=== PATIENT | female | born 1975 | race Caucasian/White ===

== ENCOUNTER 2017-11-26 15:31 | Emergency (ER) | payer OTHER ==
[2017-11-26] MEDS: diphenhydrAMINE 50 MG/ML SDV IM ONE (15:50)
[2017-11-26] MEDS: methylPREDNISolone Sodium Succinate 125 MG/2 ML SDV IM ONE (17:21)
--- NOTE | 2017-11-26 17:26 | EDM.PDOC ---
Scribed by Roseline Wakefield 11/26/17 7520 for Michael Thorpe PA ED HPI GENERAL MEDICAL PROBLEM - General Chief Complaint: Allergic Reaction Stated Complaint: [id number] ALLERGIC REACTION TONGUE SWELLING Time Seen by Provider: 11/26/17 16:05 Source of Information: Reports: Patient, RN, RN Notes Reviewed History Limitations: Reports: No Limitations - History of Present Illness INITIAL COMMENTS - FREE TEXT/NARRATIVE: Patient presents with swelling to the left side of her tongue. She has had this 3 previous times. They have stopped the Lisinopril one week ago. Her tongue now has swelling on the left posterior tongue. Onset: Today Duration: Constant Location: Reports: Other (tongue) Quality: Reports: Other (swelling) Severity: Moderate Improves with: Reports: None Worsens with: Reports: None Associated Symptoms: Reports: No Other Symptoms - Related Data Allergies Allergy/AdvReac Type Severity Reaction Status Date / Time meperidine HCl [From Demerol] Allergy Nausea and Verified 11/15/15 06:34 Vomiting midazolam HCl [From Versed] Allergy Nausea and Verified 11/15/15 06:34 Vomiting Home Meds: Home Meds Clobetasol [Temovate 0.05% Crm] 1 applic TOP ASDIRECTED PRN 05/08/14 [History] Ibuprofen 1 - 2 tab PO ASDIRECTED PRN 05/08/14 [History] Triamcinolone Acetonide [Kenalog 0.1% Oint] 2 applic TOP ASDIRECTED PRN [History] Atenolol [Tenormin] 0.5 tab PO DAILY 11/26/14 [History] Estrogens, Conjugated [Premarin] 1 tab PO DAILY 09/05/15 [History] Fluocinonide [Fluocinonide] 1 applic TOP ASDIRECTED 09/05/15 [History] Ustekinumab [Stelara] 1 injection INJECT ASDIRECTED 09/05/15 [History] Past Medical History Cardiovascular History: Reports: Other (See Below) Other Cardiovascular History: MITRAL REGURGITATION, BICUSPID AORTIC VALVE Other Gastrointestinal History: FAMILY HX COLONIC POLYPS, RECTAL BLEED Genitourinary History: Reports: None 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: Reports: Endometriosis, , Other (See Below) Other OB/BYN History: OVARIAN CYST; 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 Musculoskeletal History: Reports: Other (See Below) Other Musculoskeletal History: FOREARM TENDONITIS Neurological History: Reports: Concussion, Migraines Psychiatric History: Reports: None Endocrine/Metabolic History: Reports: None Hematologic History: Reports: None Immunologic History: Reports: None Oncologic (Cancer) History: Reports: Other (See Below) Other Oncologic History: FAMILY HISTORY OF MELANOMA Dermatologic History: Reports: Psoriasis - Infectious Disease History Infectious Disease History: Reports: Chicken Pox - Past Surgical History HEENT Surgical History: Reports: Tonsillectomy, Other (See Below) GI Surgical History: Reports: Colonoscopy Female Surgical History: Reports: Section, Hysterectomy, Salpingo- Oophorectomy, Tubal Ligation Musculoskeletal Surgical History: Reports: Arthroscopic Knee Social & Family History - Family History Family Medical History: Noncontributory - Tobacco Use Smoking Status *Q: Former Smoker Second Hand Smoke Exposure: No - Alcohol Use Days Per Week of Alcohol Use: 0 - Recreational Drug Use Recreational Drug Use: No - Living Situation & Occupation Living situation: Reports: Occupation: Employed ED ROS ALLERGIC REACTION - Review of Systems Review Of Systems: See Below ED EXAM GENERAL NO PERIP PULSE - Physical Exam Exam: See Below Exam Limited By: No Limitations General Appearance: Alert Eye Exam: Bilateral Eye: Normal Inspection Ears: Normal External Exam, Normal Canal, Hearing Grossly Normal, Normal TMs Nose: Normal Inspection, Normal Mucosa, No Blood Throat/Mouth: Other (left posterior tongue swelling) Head: Atraumatic, Normocephalic Neck: Normal Inspection, Supple, Non-Tender, Full Range of Motion Respiratory/Chest: No Respiratory Distress, Lungs Clear, Normal Breath Sounds, No Accessory Muscle Use, Chest Non-Tender Cardiovascular: Normal Peripheral Pulses, Regular Rate, Rhythm, No Edema, No Gallop, No JVD, No Murmur, No Rub GI/Abdominal: Normal Bowel Sounds, Soft, Non-Tender, No Organomegaly, No Distention, No Abnormal Bruit, No Mass (Female) Exam: Deferred Rectal (Female) Exam: Deferred Back Exam: Normal Inspection, Full Range of Motion, NT Extremities: Normal Inspection, Normal Range of Motion, Non-Tender, Normal Capillary Refill, No Pedal Edema Neurological: Alert, Oriented, CN II-XII Intact, Normal Cognition, Normal Gait, Normal Reflexes, No Motor/Sensory Deficits Psychiatric: Normal Affect, Normal Mood Skin Exam: Warm, Dry, Intact, Normal Color Lymphatic: No Adenopathy Course - Orders/Labs/Meds Meds: Medications Discontinued Medications Generic Name Dose Route Start Last Admin Trade Name Khanh PRFlorencia Reason Stop Dose Admin Diphenhydramine HCl 50 mg 11/26/17 15:41 11/26/17 15:50 Benadryl IM 11/26/17 15:42 50 mg ONETIME ONE Administration Methylprednisolone Sodium Succinate 125 mg 11/26/17 17:08 11/26/17 17:21 Solu-Medrol IM 11/26/17 17:09 125 mg ONETIME ONE Administration - Re-Assessments/Exams Free Text/Narrative Re-Assessment/Exam: 11/26/17 17:25 Follow-up examination revealed that the patient was feeling a little better, but continues to have swelling in the left posterior tongue. The patient was given an injection of SoluMedrol while in the ED. Departure - Departure Time of Disposition: 17:55 Disposition: Home, Self-Care 01 Condition: Fair Clinical Impression: Angioedema Qualifiers: Encounter type: initial encounter Qualified Code(s): T78.3XXA - Angioneurotic edema, initial encounter - Discharge Information Instructions: Angioedema, [id number] Forms: ED Department Discharge Care Plan Goals: The patient was advised of the examination results during the visit. The patient was given injections of Benadryl and SoluMedrol while in the ED. The patient was encouraged to start taking notes of the foods that she has eaten in the 12 hours prior to the reaction. If the patient has any additional symptoms or concerns, the patient should follow-up with her primary care facility or return to the emergency department. I have read and agree with the documentation that has been completed regarding this visit. By signing this record, I attest that the documentation was completed in my physical presence and is an accurate record of the encounter.
[2017-11-26 17:58] VITALS: BP 140/87
== END 2017-11-26 18:16 | disposition home or self-care (01) ==
LOC: DL.ED 15:31
DX: T78.3XXA Angioneurotic edema, initial encounter (principal); Z88.8 Allergy status to other drugs, medicaments and biological substances; Z79.899 Other long term (current) drug therapy; Z87.891 Personal history of nicotine dependence
CPT/HCPCS: 96372; 99284; J1200; J2930

== ENCOUNTER 2019-06-15 07:30 | Day surgery (SDC) | payer OTHER ==
[~2019-06-15 07:30] MED LIST: Midazolam 1 MG/ML 2 ML SDV ONE; fentaNYL 100 MCG/2 ML SDV ONE
[2019-06-15] MEDS ORDERED: fentaNYL 100 MCG/2 ML SDV IV ONE ×4 (07:31→08:38)
[2019-06-15] MEDS ORDERED: Sodium Chloride 0.9% 10 ML Syringe FLUSH PRN (08:30)
[2019-06-15] MEDS ORDERED: Dextrose 5%-0.45% NaCl 1,000 ML IV SCH (08:30)
[2019-06-15] MEDS ORDERED: fentaNYL 100 MCG/2 ML SDV ONE (08:50)
[2019-06-15 11:45] VITALS: BP 120/84; PULSE 71
--- NOTE | 2019-06-15 14:24 | OR ---
DATE: 06/15/2019 PROCEDURE: Esophagogastroduodenoscopy and multiple pinch biopsies. INSTRUMENT USED: [id number] Olympus video panendoscope. PREMEDICATIONS: No oral or topical anesthesia used. Fentanyl 125 mcg intravenous. Procedure was done under pulse oximetry, BP recording, and environmental science instructor. INDICATION: The patient with persistent high dysphagia and heartburn, unexplained and not responsive to medical measures. Esophagogastroduodenoscopy is performed for detection of any active erosive lesions, Leon esophagus and/or malignancy also under consideration, H. pylori status to be determined, endoscopic hemostasis therapy if needed. PROCEDURE IN DETAIL: The scope was passed with ease. Adequate visualization of the esophagus was made from proximal to distal areas. No upper esophageal lesions identified. No distal esophageal stricture. No uphill or downhill esophageal varices. No Ethel-Julien tear. No evidence of erosive esophagitis by Hesston criteria. No esophageal polyp or tumor mass identified. [place] columnar epithelium was noted at around 36 cm distal to the oral verge, four quadrant biopsies were obtained and sent for any histopathologic evidence of intestinal metaplasia. No proximal gastric varices noted. Gastric fundus examination by retroflexion showed no polypoid lesions. No gastric ulcer, malignant mass, or vascular ectasia identified. Patchy erythema of the gastric antral mucosa was noted. Duodenal bulb showed no ulcer. Visualized second part of the duodenum was unremarkable. Multiple pinch biopsies were taken from the gastric antrum and proximal body, and sent for PyloriTek test for H. pylori and histopathology. No bleeding was noted from any of the visualized areas at the completion of examination. Photographs were taken of the duodenal bulb, gastric antrum, fundus, and distal esophagus. IMPRESSION: Columnar lined distal esophagus. The patient tolerated the procedure well. [facility] /[id number]
== END 2019-06-15 10:46 | disposition home or self-care (01) ==
LOC: DL.ENDO 07:30
PROVIDERS: ATTEND Internal Medicine Gastroenterology
DX: K21.0 Gastro-esophageal reflux disease with esophagitis (principal); K31.9 Disease of stomach and duodenum, unspecified; Z98.890 Other specified postprocedural states
CPT/HCPCS: 43239; 87077; J3010; J7042

== ENCOUNTER 2019-06-15 16:57 | Emergency (ER) | payer OTHER ==
[2019-06-15 17:08] VITALS: BP 139/92; PULSE 74
[2019-06-15] MEDS ORDERED: Ketorolac 30 MG/ML SDV IVPUSH ONE (17:26)
[2019-06-15] MEDS ORDERED: Sodium Chloride 0.9% 10 ML Syringe FLUSH PRN (17:26)
[2019-06-15] MEDS ORDERED: Ondansetron 4 MG/2 ML SDV IV ONE (17:26)
[2019-06-15] MEDS ORDERED: Sodium Chloride 0.9% 1,000 ML IV ONE (17:26)
[2019-06-15 18:25] LABS: ANION GAP 14.8; CHLORIDE,CL 103 mmol/L (101-111); SODIUM,NA 138 mmol/L (135-145)
--- NOTE | 2019-06-15 18:39 | EDM.PDOC ---
Scribed by Roseline Wakefield 06/15/19 1820 for Genna Taylor MD ED HPI GENERAL MEDICAL PROBLEM - General Chief Complaint: Gastrointestinal Problem Stated Complaint: EGD DONE THIS MORNING, REACTION TO MEDICATION. Time Seen by Provider: 06/15/19 17:13 Source of Information: Reports: Patient, RN, RN Notes Reviewed History Limitations: Reports: No Limitations - History of Present Illness INITIAL COMMENTS - FREE TEXT/NARRATIVE: Patient presents to ER with complaint of nausea/vomiting, upper abdominal pain, dizziness and headache which began shortly after having an EGD by Dr. Montoya for evaluation of acid reflux symptoms. Patient states she had an EGD done earlier today and was discharged at 1000HRS. Patient states that she requested the EGD be done without Versed because she believed that she had had a reaction to Versed in the past. Therefore, the procedure was done with Fentanyl only. The past reaction which she attributed to the Versed consisted of symptoms very similar to what she is experiencing now. She denies any fevers or chills. Denies any bloody emesis, coffee ground emesis, bloody or black stool or melena. Patient states that she contacted Dr. Montoya and was instructed to go to the ER for evaluation and treatment of her symptoms. Onset: Today Duration: Constant Location: Reports: Abdomen Quality: Reports: Ache Severity: Mild Improves with: Reports: None Worsens with: Reports: None Associated Symptoms: Reports: No Other Symptoms Frontal Headache Pain Score (Numeric/FACES): 4 - Related Data Allergies Allergy/AdvReac Type Severity Reaction Status Date / Time doxycycline Allergy Blurred Verified 06/15/19 07:42 Vision lisinopril Allergy Swelling Verified 06/15/19 07:42 meperidine HCl [From Demerol] Allergy Nausea and Verified 06/15/19 07:42 Vomiting midazolam HCl [From Versed] Allergy Nausea and Verified 06/15/19 07:42 Vomiting gold Allergy Blisters Uncoded 04/10/19 17:16 rubbing alcholol Allergy Swelling Uncoded 04/10/19 17:16 Home Meds: Home Meds Ibuprofen 3 tab PO ASDIRECTED PRN 05/08/14 [History] Estrogens, Conjugated [Premarin] 1 tab PO DAILY 09/05/15 [History] amLODIPine [Norvasc] 2.5 mg PO DAILY 07/18/18 [History] Acetaminophen [Tylenol] 650 mg PO ASDIRECTED PRN 06/14/19 [History] FLUoxetine [PROzac] 20 mg PO DAILY 06/14/19 [History] Ketoconazole [Ketoconazole 2%] 1 applic TOP BID PRN 06/14/19 [History] Metoprolol Succinate [Toprol XL] 25 mg PO DAILY 06/14/19 [History] Omeprazole 20 mg PO DAILY 06/14/19 [History] Past Medical History HEENT History: Reports: Impaired Vision Other HEENT History: glasses, nasal vestibulitis Cardiovascular History: Reports: Other (See Below) Other Cardiovascular History: MITRAL REGURGITATION, BICUSPID AORTIC VALVE Respiratory History: Reports: None Gastrointestinal History: Other Gastrointestinal History: FAMILY HX COLONIC POLYPS, RECTAL BLEED, SEVERE NAUSEA FOLLOWING ANESTHESIA Genitourinary History: Reports: Other (See Below) Other Genitourinary History: VAGINAL STENOSIS 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: Reports: Endometriosis, , Other (See Below) Other 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: OVARIAN CYST; 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 Musculoskeletal History: Reports: Other (See Below) Other Musculoskeletal History: FOREARM TENDONITIS Neurological History: Reports: Concussion, Migraines Psychiatric History: Reports: Anxiety Endocrine/Metabolic History: Reports: None Hematologic History: Reports: None Immunologic History: Reports: None Oncologic (Cancer) History: Reports: Other (See Below) Other Oncologic History: FAMILY HISTORY OF MELANOMA Dermatologic History: Reports: Psoriasis - Infectious Disease History Infectious Disease History: Reports: Chicken Pox - Past Surgical History HEENT Surgical History: Reports: Tonsillectomy Other HEENT Surgeries/Procedures: EYE SURGERY Other Cardiovascular Surgeries/Procedures: TRANS ESOPHAGEAL ECCHYOCARDIOGRAM GI Surgical History: Reports: Colonoscopy, EGD Female Surgical History: Reports: Section, Hysterectomy, Salpingo- Oophorectomy, Tubal Ligation Musculoskeletal Surgical History: Reports: Arthroscopic Knee Social & Family History - Family History Family Medical History: Noncontributory - Caffeine Use Caffeine Use: Reports: Soda - Living Situation & Occupation Living situation: Reports: Occupation: Employed ED ROS ALLERGIC REACTION - Review of Systems Review Of Systems: ROS reveals no pertinent complaints other than HPI. ED EXAM GENERAL NO PERIP PULSE - Physical Exam Exam: See Below Exam Limited By: No Limitations General Appearance: Alert, Mild Distress Eye Exam: Bilateral Eye: Normal Inspection (No scleral icterus) Nose: Normal Inspection Throat/Mouth: Normal Inspection, Normal Lips, Normal Teeth, Normal Gums, Normal Oropharynx, Normal Voice, No Airway Compromise Head: Atraumatic, Normocephalic Neck: Normal Inspection, Supple, Non-Tender, Full Range of Motion Respiratory/Chest: No Respiratory Distress, Lungs Clear, Normal Breath Sounds, No Accessory Muscle Use, Chest Non-Tender Cardiovascular: Regular Rate, Rhythm GI/Abdominal: Normal Bowel Sounds, Soft, No Organomegaly, No Distention, Tender (mild epigastric tenderness). No: Guarding, Rigid, Rebound Extremities: Normal Inspection Neurological: Alert, Oriented, No Motor/Sensory Deficits Psychiatric: Normal Mood Skin Exam: Warm, Dry, Intact, Normal Color, No Rash Course - Vital Signs Last Recorded V/S: Last Vital Signs Temp 98.3 F 06/15/19 17:04 Pulse 74 06/15/19 17:04 Resp 18 06/15/19 17:04 BP 139/92 H 06/15/19 17:04 Pulse Ox 100 06/15/19 17:04 - Orders/Labs/Meds Orders: Active Orders 24 hr Category Date Time Status Peripheral IV Care [RC] . DIRECTED Care 06/15/19 17:26 Active Abdomen 2V AP Upright Decub [CR] Stat Exams 06/15/19 17:30 Taken COMPREHENSIVE METABOLIC PN,CMP [CHEM] Stat Lab 06/15/19 17:50 Results HCG QUALITATIVE,SERUM [CHEM] Stat Lab 06/15/19 17:50 Results Sodium Chloride 0.9% [Saline Flush] Med 06/15/19 17:26 Active 10 ml FLUSH ASDIRECTED PRN Peripheral IV Insertion Adult [OM.PC] Stat Oth 06/15/19 17:25 Ordered Medication Orders Sodium Chloride (Saline Flush) 10 ml FLUSH ASDIRECTED PRN PRN Reason: Keep Vein Open Last Admin: 06/15/19 18:03 Dose: 10 ml Labs: Laboratory Tests 06/15/19 06/15/19 Range/Units 17:50 17:50 WBC 8.9 (5.0-10.0) 10^3/uL RBC 4.63 (4.2-5.4) 10^6/uL Hgb 14.1 (12.0-16.0) g/dL Hct 42.7 (37.0-47.0) % MCV 92.2 D (80-100) fL MCH 30.5 (27.0-34.0) pg MCHC 33.0 (33.0-35.0) g/dL Plt Count 260 (150-450) 10^3/uL Neut % (Auto) 79.6 H (42.2-75.2) % Lymph % (Auto) 14.6 L (20.5-50.1) % [place] % (Auto) 5.3 (2-8) % Eos % (Auto) 0.3 L (1.0-3.0) % Baso % (Auto) 0.2 (0.0-1.0) % Sodium 138 (135-145) mmol/L Potassium 3.8 (3.6-5.0) mmol/L Chloride 103 (101-111) mmol/L Carbon Dioxide 24.0 (21.0-31.0) mmol/L Anion Gap 14.8 BUN 11 (7-18) mg/dL Creatinine 0.5 L (0.6-1.3) mg/dL Est Cr Clr Drug Dosing 114.74 mL/min Estimated GFR (MDRD) > 60 BUN/Creatinine Ratio 22.00 Glucose 96 (74-105) mg/dL Calcium 8.8 (8.4-10.2) mg/dl Total Bilirubin 0.7 (0.2-1.0) mg/dL AST 26 (10-42) IU/L ALT 19 (10-60) IU/L Alkaline Phosphatase 91 (42-121) IU/L Total Protein 7.3 (6.7-8.2) g/dl Albumin 4.0 (3.2-5.5) g/dl Globulin 3.3 Albumin/Globulin Ratio 1.21 Meds: Medications Generic Name Dose Route Start Last Admin Trade Name Freq PRN Reason Stop Dose Admin Sodium Chloride 10 ml 06/15/19 17:26 06/15/19 18:03 Saline Flush FLUSH 10 ml ASDIRECTED PRN Administration Keep Vein Open Discontinued Medications Generic Name Dose Route Start Last Admin Trade Name Freq PRN Reason Stop Dose Admin Sodium Chloride 1,000 mls @ 999 mls/hr 06/15/19 17:26 06/15/19 17:42 Normal Saline IV 06/15/19 18:26 999 mls/hr .BOLUS ONE Administration Ketorolac Tromethamine 30 mg 06/15/19 17:26 06/15/19 17:41 Toradol IVPUSH 06/15/19 17:27 30 mg ONETIME ONE Administration Ondansetron HCl 4 mg 06/15/19 17:26 06/15/19 17:42 Zofran IV 06/15/19 17:27 4 mg ONETIME ONE Administration - Radiology Interpretation Free Text/Narrative:: [facility] Final Radiology Report Call: [phone] assistance Online chat: [email or web address] Name: ROLAND GARSIA Age: 43Years F Date: 06/15/2019 SSN: -- : [id number] Study: XR ABDOMEN COMPLETE W DECUBITUS &/OR ERECT VIEWS Requesting Physician: GENNA TAYLOR Images: 3 Addl Studies: Provided Clinical History: Contrast: Contrast Medium: Contrast Amount: Contrast Method: CONFIDENTIALITY STATEMENT This report is intended only for use by the referring physician, and only in accordance with law. If you received this in error, call [phone]. Page 1 of 1 PROCEDURE INFORMATION: Exam: XR Abdomen, 3 or More Views Exam date and time: 06/15/2019 5:52 PM Clinical history: 43 years old, female; Other: Upper abdomen pain with vomitting , S/P egd this morning. ? Free air TECHNIQUE: Imaging protocol: XR of the abdomen. Frontal supine, upright and one or more additional views. Views: 3 or more views. COMPARISON: No relevant prior studies available. FINDINGS: Gastrointestinal tract: No over distention of bowel loops is seen. Residual contrast material is scattered along the colon. Intraperitoneal space: No evidence of intraperitoneal free air. Bones/joints: The spine, sacroiliac joints, and hip joints are normal. Soft tissues: The psoas margins are visualized and appear normal. IMPRESSION: No acute abnormality. Thank you for allowing us to participate in the care of your patient. Dictated and Authenticated by: Christophe Leigh MD Departure - Departure Time of Disposition: 18:35 Disposition: Home, Self-Care 01 Condition: Good Clinical Impression: Adverse effects of medication Qualifiers: Encounter type: initial encounter Qualified Code(s): T50.905A - Adverse effect of unspecified drugs, medicaments and biological substances, initial encounter Nausea & vomiting Qualifiers: Vomiting type: unspecified Vomiting Intractability: unspecified Qualified Code( s): R11.2 - Nausea with vomiting, unspecified - Discharge Information *PRESCRIPTION DRUG MONITORING PROGRAM REVIEWED*: No *COPY OF PRESCRIPTION DRUG MONITORING REPORT IN PATIENT AMBER: No Instructions: Nausea and Vomiting, Adult Forms: ED Department Discharge Additional Instructions: Rx: Zofran ODT 4mg Follow up with Dr. Montoya if any further problems. Return to ER if worse at any time. - My Orders Last 24 Hours: My Active Orders 06/15/19 17:25 Peripheral IV Insertion Adult [OM.PC] Stat 06/15/19 17:26 Peripheral IV Care [RC] . DIRECTED Sodium Chloride 0.9% [Saline Flush] 10 ml FLUSH ASDIRECTED PRN 06/15/19 17:30 Abdomen 2V AP Upright Decub [CR] Stat 06/15/19 17:50 COMPREHENSIVE METABOLIC PN,CMP [CHEM] Stat HCG QUALITATIVE,SERUM [CHEM] Stat - Assessment/Plan Last 24 Hours: My Active Orders 06/15/19 17:25 Peripheral IV Insertion Adult [OM.PC] Stat 06/15/19 17:26 Peripheral IV Care [RC] . DIRECTED Sodium Chloride 0.9% [Saline Flush] 10 ml FLUSH ASDIRECTED PRN 06/15/19 17:30 Abdomen 2V AP Upright Decub [CR] Stat 06/15/19 17:50 COMPREHENSIVE METABOLIC PN,CMP [CHEM] Stat HCG QUALITATIVE,SERUM [CHEM] Stat I have read and agree with the documentation that has been completed regarding this visit. By signing this record, I attest that the documentation was completed in my physical presence and is an accurate record of the encounter.
== END 2019-06-15 19:00 | disposition home or self-care (01) ==
LOC: DL.ED 16:57
DX: R11.2 Nausea with vomiting, unspecified (principal); R42 Dizziness and giddiness; R10.10 Upper abdominal pain, unspecified; T40.4X5A Adverse effect of other synthetic narcotics, initial encounter; F41.9 Anxiety disorder, unspecified; Z88.1 Allergy status to other antibiotic agents; Z88.8 Allergy status to other drugs, medicaments and biological substances; Z91.09 Other allergy status, other than to drugs and biological substances; Z85.828 Personal history of other malignant neoplasm of skin
CPT/HCPCS: 36415; 74021; 80053; 84703; 85025; 96361; 96374; 96375; 99284; J1885; J2405; J7030